=== PATIENT | female | born 1940 | race Caucasian/White ===

== ENCOUNTER → 2023-09-25 18:28 | Outpatient (REF) | payer MEDICARE, SELFPAY | LOC: PAVMRI 18:28 | PROVIDERS: ATTENDING PHYSICIAN Family Medicine | DX: R42 Dizziness and giddiness (principal); Z87.828 Personal history of other (healed) physical injury and trauma | CPT/HCPCS: 70551 ==

== ENCOUNTER → 2023-10-09 14:17 | Outpatient (REF) | payer MEDICARE, SELFPAY | LOC: RAD 14:17 | PROVIDERS: ATTENDING PHYSICIAN Family Medicine | DX: R42 Dizziness and giddiness (principal); Z87.828 Personal history of other (healed) physical injury and trauma; R93.89 Abnormal findings on diagnostic imaging of other specified body structures | CPT/HCPCS: 76536 ==

== ENCOUNTER 2024-10-18 09:42 | Emergency (ER) | payer MEDICARE, SELFPAY ==
[2024-10-18 09:50] VITALS: BP 127/75
[2024-10-18] MEDS: ROXICODONE 5 MG PO (11:28)
[2024-10-18 13:01] VITALS: BMI 20.2
[2024-10-18 13:09] LABS: % Basophils 0.9 % (0-2); % Eosinophils 0.4 % (0-6); % Immature Granulocytes 0.6 % (0-0.5); % Monocytes 8.1 % (1.7-9.3); Absolute Basophils 0.1 10^3/uL (0-0.2); Absolute Immature Granulocytes 0.1 10^3/uL (0-0.05); Absolute Lymphocytes 1.7 10^3/uL (1.2-3.4); Absolute Monocytes 0.7 10^3/uL (0.1-0.6); Absolute Neutrophils 5.5 10^3/uL (1.4-6.5); Hematocrit 41.5 % (37.0-47.0); Hemoglobin 14.7 g/dL (12.0-16.0); Mean Corp Hgb Conc. 35.4 g/dL (33.0-37.0); Mean Corpuscular Hgb 34.8 pg (27.0-31.0); Mean Corpuscular Volume 98.3 fL (81.0-99.0); Mean Platelet Volume 10.2 fL (7.4-10.4); Nucleated Red Blood Cells % 0 %; Platelet Count 224 10^3/uL (130-400); Red Blood Cell Count 4.22 10^6/uL (4.20-5.40); Red Cell Dist. Width 12.4 % (11.5-14.5)
[2024-10-18] MEDS: BENADRYL 12.5 MG IV (13:13)
[2024-10-18] MEDS: SOLU-CORTEF 200 MG IV (13:13)
[2024-10-18 13:30] LABS: ALT (SGPT) 35 U/L (0-35); AST (SGOT) 43 U/L (14-36); Alkaline Phosphatase 77 U/L (38-126); Blood Urea Nitrogen 18 mg/dl (7-17); Calcium 10.1 mg/dl (8.4-10.2); Carbon Dioxide 23 mmol/L (22-30); Chloride 100 mmol/L (98-107); Estimated Creatinine Clearance 38 ml/min; Glucose 108 mg/dl (70-99); Potassium 4.8 mmol/L (3.5-5.1); Sodium 138 mmol/L (135-145); Total Bilirubin 2.3 mg/dl (0.2-1.3); Total Protein 7.6 g/dl (6.3-8.2); eGFR > 60.00
--- NOTE | 2024-10-18 13:51 | ED.GENMED ---
History of Present Illness
General
Chief Complaint: Musculo-Skeletal Complaint
Time Seen by Provider: 10/18/24 10:00
History of Present Illness
History of Present Illness:
84-year-old female presents the emergency department for evaluation of left medial clavicle pain after falling down the steps 4 days ago. She was carrying an object and the object struck her in the chest that she fell forward. Denies head strike
or LOC. She has pain with deep breathing as well as with any motion of the head or neck. Denies any posterior neck discomfort. No hemoptysis.
Past History
Past History
ED Past Medical History: Cancer (: Carcinoma resected 7 years ago) and Other (colon ca: 'cleared' past 7 years, PNA)
ED Past Surgical History: Bowel resection (Colon CA)
Social History
Tobacco: Former smoker
Alcohol: Occasional
Personal:
Living: with family
Employment: Retired
Family History
Family History: Negative Diabetes, Hypertension, Early CAD, Asthma or Cancer
Review of Systems
Review of Systems
Allergies reviewed?: Yes
All Other Systems: ROS reviewed and negative except as documented in HPI and ROS
Phy Exam
Physical Exam
Physical Exam:
GEN: Well appearing, NAD, WDWN
HEENT: Oral mucosa moist, no scleral icterus
Cardiac: Regular rate
Lung: No respiratory distress, no tachypnea, lungs clear to auscultation
MSK: Significant swelling of the left sternal clavicular joint with step-off deformity noted, exquisitely tender, no crepitus
Skin: Good color, no pallor or jaundice, no rashes
Neuro: AO x3, moves all extremities freely
Psych: Calm, cooperative
Course
Orders/Labs/Results
Orders:
Orders
10/18/24 09:54
Shoulder, Left, Trauma CR [CR Shoulder, Trauma - Left] Urgent
Comment:
Reason For Exam: fall
10/18/24 11:12
CT Chest W/o Iv Contrast Urgent
Comment:
Reason For Exam: suspected L sternoclavicular dislocation
Oxycodone [Roxicodone] 5 mg PO NOW STA
10/18/24 12:53
CT Chest/abd/pelvis Angio W/wo Urgent
Comment:
Reason For Exam: aortic dissection on non con CT
10/18/24 13:01
Complete Blood Count/With Diff Urgent
Comprehensive Metabolic Panel Urgent
10/18/24 13:04
Diphenhydramine [Benadryl] 12.5 mg IV NOW STA
Hydrocortisone Sod Succinate [Solu-Cortef] 200 mg IV NOW STA
Abnormal Lab Results
10/18/24
13:01
MCH 34.8 H pg
(27.0-31.0)
Abs Immat Gran (auto) 0.1 H 10^3/uL
(0-0.05)
Absolute Monos (auto) 0.7 H 10^3/uL
(0.1-0.6)
Immature Gran % 0.6 H %
(0-0.5)
BUN 18 H mg/dl
(7-17)
Glucose 108 H mg/dl
(70-99)
Total Bilirubin 2.3 H mg/dl
(0.2-1.3)
AST 43 H U/L
(14-36)
10/18/24 13:01
10/18/24 13:01
Vital Signs
Initial and Last Documented VS:
Initial Vital Signs
Temp Pulse Resp BP Pulse Ox
98.3 F 120 16 127/75 98
10/18/24 09:50 10/18/24 09:50 10/18/24 09:50 10/18/24 09:50 10/18/24 09:50
Last Documented Vital Signs
Temp Pulse Resp BP Pulse Ox
98.7 F 74 18 126/74 98
10/18/24 16:06 10/18/24 16:06 10/18/24 16:06 10/18/24 16:06 10/18/24 16:06
MDM/Problems Addressed
MDM/Problems Addressed:
Initial x-rays unremarkable thus patient was sent for CT of the chest due to significant deformity noted. This did reveal a nondisplaced medial clavicle fracture however incidentally noted right lower lobe neoplastic appearing nodule in addition to
vessel calcifications in the distal thoracic aorta consistent with tensional chronic dissection. She is unremarkable symptoms at this time however will send for angiography studies to further assess the aortic abnormality
Imaging completed showing a small section of aortic dissection in the thoracic aorta which was felt to be a chronic finding. This was discussed with vascular surgery on-call, they feel as though this can be managed adequately as a follow-up
outpatient visit particular given the patient's clinical stability. In regards to the right lung spiculated mass we will refer the patient as an outpatient to pulmonology. Lastly, the ultimate reason for her visit was a fall with chest injury
showing a proximal clavicular fracture. She has no signs of further injury deep to this, she is appropriate for outpatient orthopedic follow-up, prescribed opiates for pain
*Critical Care Note
Total Time (30-74mins, 75-104mins- exclusive of procedures): Not Applicable
ED Attending Note
-
Portions of this chart may have been created with voice recognition software.� Occasional wrong word or��sound alike� substitutions may have occurred due to the inherent limitations of voice recognition software.
Discharge Plan
Departure
Patient Disposition: Home (Routine Discharge)
Patient with high blood pressure during this ER visit?: No
Discharge Problem:
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
Instructions: Clavicle fracture
Prescriptions:
New
oxycodone 5 mg tablet
5 mg PO Q8H PRN (Reason: Pain) Qty: 10 0RF
No Action
hydrocodone-acetaminophen 1 EACH tablet
1 ea PO Q4H PRN (Reason: pain) 10 Days Qty: 40 0RF
Rx Instructions:
1-2 tabs po q4-6 prn
aspirin 325 MG tablet,delayed release (DR/EC)
325 mg PO DAILY 30 Days Qty: 30 0RF
ondansetron HCl 4 MG tablet
4 mg PO Q6HPRN PRN (Reason: nausea) Qty: 20 0RF
Referrals:
Gal Mosquera MD [Active] - Call in 1-3 days for appt
Diego Otero MD [Active] -
Rolly Walker MD [Active] -
Moose Escobar MD [Family Provider] -
Activity Restrictions/Additional Instructions:
You will need to follow-up with the listed wet cotton feeder for further workup of your right lower lobe lung mass to determine the significance of this
Follow-up with orthopedics as listed to reevaluate her collarbone fracture
Interventions
Interventions:
*Risk Screen - Suicide Last Done: 10/18/24 09:50
*General Assessment Last Done: 10/18/24 11:46
*Neglect/Abuse Screening Last Done: 10/18/24 09:50
*ED- Fall Risk Assessment Last Done: 10/18/24 11:46
*ED COVID-19 Vaccine History Last Done: 10/18/24 11:46
*Nursing Disposition Last Done: 10/18/24 16:06
ED-Musculoskeletal Assessment Last Done: 10/18/24 11:46
Discharge Date and Time
Discharge Date/Time: 10/18/24 16:07
Print Language: ZAMBIAN
[2024-10-18 16:06] VITALS: BP 126/74
== END 2024-10-18 16:07 | disposition home or self-care (01) ==
LOC: EMR 09:42
PROVIDERS: Physician Assistant; EMERGENCY PHYSICIAN Emergency Medicine; FAMILY PHYSICIAN Family Medicine
DX: S42.012A Anterior displaced fracture of sternal end of left clavicle, initial encounter for closed fracture (principal); W10.9XXA Fall (on) (from) unspecified stairs and steps, initial encounter; I71.012 Dissection of descending thoracic aorta; R91.8 Other nonspecific abnormal finding of lung field; Z87.891 Personal history of nicotine dependence
CPT/HCPCS: 99285; 96374; 96375; 71250; 71275; 73030; 74174; 80053; 85025; Q9967